=== PATIENT | male | born 1990 | race Two or more races ===

== ENCOUNTER 2020-03-10 05:44 | Day surgery (SDC) | payer OTHER ==
[2020-03-07 14:41] VITALS: BMI 34.8
--- OUTSIDE RECORDS SUMMARY | 2020-03-10 05:48 | XMS ---
:1990 [facility] Providers Name Role Phone [facility], [facility]9 Unavailable Unavailable Re-disclosure Warning The records that you are about to access may contain information from federally- assisted alcohol or drug abuse programs. If such information is present, then the following federally mandated warning applies: This information has been disclosed to you from records protected by federal confidentiality rules (42 CFR part 2). The federal rules prohibit you from making any further disclosure of this information unless further disclosure is expressly permitted by the written consent of the person to whom it pertains or as otherwise permitted by 42 CFR part 2. A general authorization for the release of medical or other information is NOT sufficient for this purpose. The Federal rules restrict any use of the information to criminally investigate or prosecute any alcohol or drug abuse patient.The records that you are about to access may contain highly sensitive health information, the redisclosure of which is protected by Article 27-F of the [facility] Public Health law. If you continue you may haveaccess to information: Regarding HIV / AIDS; Provided by facilities licensed or operated by the [facility] Office of Mental Health; or Provided by the [facility] Office for People With Developmental Disabilities. If such information is present, then the following [facility] mandated warning applies: This information has been disclosed to you from confidential records which are protected by state law. State law prohibits you from making any further disclosure of this information without the specific written consent of the person to whom it pertains, or as otherwise permitted by law. Any unauthorized further disclosure in violation of state law may result in a fine or fpc sentence or both. A general authorization for the release of medical or other information is NOT sufficient authorization for further disclosure. Encounters Encounter Providers Location Date Indications Data Source(s ) Outpatient Attender: [id number] 06/30/2019 [facility] ([facility] 12:08:36 PM Care Jewel castellanos) EST Patient admitted. Insurance Providers Payer name Policy type Policy ID Covered Covered alliance party's Policy P martina / Coverage alliance party ID relationship to [employer] ormation type roberts MVP MEDICAID [id number] SP [id number] [place] [id number] S [id number] Vision MKD [facility] [id number] S [id number] FFS Medicaid [facility] [id number] S [id number] Options MKD Medicaid [id number] S [id number] Regular Clinic Visit (DO NOT USE) [id number] S [id number] G [facility] PCP Not MVNHC/YHC/GH C Results ID Date Data Source [id number] 03/02/2020 12:00:00 AM EDT [facility] Name Value Range Interpretation Code Description Data Caitlin rce(s) Supporting Document(s ) 2018-nCoV [facility] RNA XXX CA+probe- Imp This lab was ordered by [facility] and reported by [employer] ID Date Data Source [id number] 10/08/2019 12:00:00 AM EDT [facility] Name Value Range Interpretation Code Description Data Caitlin rce(s) Supporting Document(s ) 2018-nCoV [facility] RNA XXX CA+probe- Imp This lab was ordered by [facility] and reported by [employer] Procedure
[2020-03-10] MEDS ORDERED: PROPOFOL 20 ML ONE (09:30)
[2020-03-10] MEDS ORDERED: KETAMINE HCL 500 MG/10 ML VIAL ONE (09:33)
[2020-03-10 10:49] VITALS: TEMP 97.9
[2020-03-10 11:07] VITALS: BP 135/82; PULSE 89
--- NOTE | 2020-03-10 13:21 | HP ---
CHIEF COMPLAINT: Schizoaffective disorder Primary Psychiatrist: Sathish Owens MD, [facility], [address], ; [phone] HISTORY OF PRESENT ILLNESS: 29 year-old male with a PMH significant for HTN, Type II NIDDM, ASHD, schizoaffective disorder, and polysubstance abuse. Has been a patient at [facility] for past 3 years. He presents today for ECT. Recent Events: * none reported PAST MEDICAL HISTORY: Hypertension Type II NIDDM ASHD Schizoaffective Disorder Polysubstance Abuse PAST SURGICAL HISTORY: Neck surgery Social History: resident of [facility] Smoking: current every day Alcohol & Drugs: h/o cannabis, alcohol, stimulants, opiates Family history: Mother 56 a&w; father 54 DM; 5 siblings a&w none with psych history Allergies No Known Drug Allergies Allergy (Verified 03/04/20 13:24) HOME MEDICATIONS: Home Medications Medication Instructions Recorded Aspirin [Lo-Dose Aspirin EC] 81 mg PO DAILY 03/04/20 Bisacodyl [Dulcolax -] 10 mg PO HS 03/04/20 Caffeine 400 mg PO DAILY PRN 03/04/20 Cholecalciferol (Vitamin D3) 2,000 unit PO DAILY 03/04/20 [Vitamin D3 -] Clozapine 500 mg PO HS 03/04/20 Docusate Sodium [Docusate 100 mg] 100 mg PO DAILY 03/04/20 Haloperidol [Haldol -] 10 mg PO HS 03/04/20 Liraglutide [Victoza -] 1.2 mg SQ DAILY@0700 03/04/20 Lisinopril [Zestril] 2.5 mg PO DAILY 03/04/20 Metformin HCl [Glucophage] 1,000 mg PO BID 03/04/20 Metoprolol Succinate 50 mg PO DAILY 03/04/20 Multivit-Min/Iron/Folic Acid/K 1 each PO DAILY 03/04/20 [Centravites Adults Tablet] Psyllium [Metamucil (Sugar-Free) -] 5.85 gm PO HS 03/04/20 Sertraline HCl [Zoloft] 100 mg PO DAILY 03/04/20 REVIEW OF SYSTEMS CONSTITUTIONAL: Absent: fever, chills, diaphoresis, generalized weakness, malaise, loss of appetite, weight change HEENT: Absent: rhinorrhea, nasal congestion, throat pain, throat swelling, difficulty swallowing, mouth swelling, ear pain, eye pain, visual changes CARDIOVASCULAR: Absent: chest pain, syncope, palpitations, irregular heart rate, lightheadedness, peripheral edema RESPIRATORY: Absent: cough, shortness of breath, dyspnea with exertion, orthopnea, wheezing, stridor, hemoptysis GASTROINTESTINAL: Absent: abdominal pain, abdominal distension, nausea, vomiting, diarrhea, constipation, melena, hematochezia GENITOURINARY: Absent: dysuria, frequency, urgency, hesitancy, hematuria, flank pain, genital pain MUSCULOSKELETAL: Absent: myalgia, arthralgia, joint swelling, back pain, neck pain SKIN: Absent: rash, itching, pallor HEMATOLOGIC/IMMUNOLOGIC: Absent: easy bleeding, easy bruising, lymphadenopathy, frequent infections ENDOCRINE: Absent: unexplained weight gain, unexplained weight loss, heat intolerance, cold intolerance NEUROLOGIC: Absent: headache, focal weakness or paresthesias, dizziness, unsteady gait, seizure, mental status changes, bladder or bowel incontinence PHYSICAL EXAMINATION Vital Signs - 24 hr 03/10/20 03/10/20 03/10/20 07:21 09:49 09:54 Temperature 98.0 F 98.5 F Pulse Rate 75 116 H 112 H Respiratory 18 19 13 Rate Blood Pressure 106/84 135/70 148/94 O2 Sat by Pulse 98 100 99 Oximetry (%) GENERAL: Awake, alert, and fully oriented, in no acute distress. HEAD: Normal with no signs of trauma. EYES: Pupils equal, round and reactive to light, sclera anicteric, conjunctiva clear. LUNGS: Breath sounds equal, clear to auscultation bilaterally. No wheezes, and no crackles. No accessory muscle use. HEART: Regular rate and rhythm, normal S1 and S2 ABDOMEN: Soft, nontender, not distended MUSCULOSKELETAL: Normal range of motion at all joints. No bony deformities or tenderness. No CVA tenderness. UPPER EXTREMITIES: 2+ pulses, warm, well-perfused. No cyanosis. No clubbing. No peripheral edema. LOWER EXTREMITIES: 2+ pulses, warm, well-perfused. No calf tenderness. No peripheral edema. NEUROLOGICAL: Cranial nerves II-XII intact. Normal speech. Laboratory Results - last 24 hr 03/10/20 07:54 POC Glucometer 80 ASSESSMENT/PLAN: 29 year-old male with a PMH significant for HTN, Type II NIDDM, ASHD, schizoaffective disorder, and polysubstance abuse. Has been a patient at [facility] for past 3 years. He presents today for ECT. Cardiac --Hypertension: BP is stable on current meds --Revised Cardiac Risk Index for Pre-Operative Risk: 0 points, 0.4% risk of major cardiac event Pulmonary --no pulmonary history Neurological --no neurological or neurosurgical history; no history of trauma Anesthesia --no reported problems with anesthesia ECT is a low risk procedure. The relative benefits of the planned procedure outweigh the relative risks for this patient at this time. Visit type - Emergency Visit Emergency Visit: No - New Patient This patient is new to me today: Yes Date on this admission: 03/10/20 - Critical Care Critical Care patient: No
== END 2020-03-10 11:00 ==
LOC: FECT 05:44
PROVIDERS: ATTEND Psychiatry & Neurology Psychiatry
PROC: GZB4ZZZ Other Electroconvulsive Therapy (ICD-10-PCS; principal; 2020-03-10 08:00)
DX: F25.9 Schizoaffective disorder, unspecified (principal)
CPT/HCPCS: 82962; 90870; 94760

== ENCOUNTER 2020-03-18 05:58 | Day surgery (SDC) | payer OTHER ==
--- OUTSIDE RECORDS SUMMARY | 2020-03-18 06:01 | XMS ---
:1990 [facility] Care Team Providers Name Role Phone [facility], [facility]9 Unavailable Unavailable Re-disclosure Warning The records that [...] is protected by Article 27-F of the [facility] Public Health law. If you continue you may haveaccess to information: Regarding HIV / AIDS; Provided by facilities licensed or operated by the [facility] Office of Mental Health; or Provided by the [facility] Office for People With Developmental Disabilities. If such information is present, then the following [facility] mandated warning applies: This information [...] Source(s ) Outpatient Attender: [id number] 06/30/2019 [facility] ([facility] EST Patient admitted. Insurance Providers Payer name Policy type Policy ID Covered Covered democrat's Policy P martina / Coverage democrat ID relationship to [employer] ormation type roberts MVP MEDICAID [id number] SP [id number] [place] [id number] S [id number] Vision MKD [facility] [id number] S [id number] FFS Medicaid [facility] [id number] S [id number] Options MKD Medicaid [id number] S [id number] Regular Clinic Visit (DO NOT USE) [id number] S [id number] G [facility] PCP Not MVNHC/YHC/GH C Results ID Date Data Source [id number] 03/14/2020 08:39:00 AM EST [facility] Name Value Range Interpretation Description Data Sup porting Code Source(s) Document(s ) SARS [facility] coronavirus 2 RNA This lab was ordered by MARY OTONIEL farley [facility] and reported by [facility]. ID Date Data Source [id number] 03/11/2020 09:14:00 AM EDT [facility] Name Value Range Interpretation Description Data Sup porting Code Source(s) Document(s ) SARS [facility] coronavirus 2 RNA This lab was ordered by MARY OTONIEL farley [facility] and reported by [facility]. ID Date Data Source [id number] 03/08/2020 09:00:00 AM EDT [facility] Name Value Range Interpretation Description Data Sup porting Code Source(s) Document(s ) SARS [facility] coronavirus 2 RNA This lab was ordered by MARY OTONIEL farley [facility] and reported by [facility]. ID Date Data Source [id number] 03/02/2020 12:00:00 AM EDT [facility] Name Value Range Interpretation Code Description Data Caitlin rce(s) Supporting Document(s ) 2019-nCoV [facility] RNA XXX CA+probe- Imp This lab was ordered by [facility] and reported by [employer]. ID Date Data Source [id number] 10/08/2019 12:00:00 AM EDT [facility] Name Value Range Interpretation Code Description Data Caitlin rce(s) Supporting Document(s ) 2019-nCoV [facility] RNA XXX CA+probe- Imp This lab was ordered by [facility] and reported by [employer] Procedure
[2020-03-18 06:38] VITALS: TEMP 98.3; BMI 34.9
[2020-03-18] MEDS ORDERED: SUCCINYLCHOLINE CHLORIDE 200 MG/10 ML SYRINGE ONE (07:18)
[2020-03-18] MEDS ORDERED: PROPOFOL 20 ML ONE (07:18)
[2020-03-18] MEDS ORDERED: KETAMINE HCL 200 MG/20 ML VIAL ONE (07:18)
[2020-03-18 08:39] VITALS: BP 131/84; PULSE 81
== END 2020-03-18 08:40 | disposition home or self-care (01) ==
LOC: FECT 05:58
PROVIDERS: ATTEND Psychiatry & Neurology Psychiatry
PROC: GZB4ZZZ Other Electroconvulsive Therapy (ICD-10-PCS; principal; 2020-03-18 07:00)
DX: F25.9 Schizoaffective disorder, unspecified (principal)
CPT/HCPCS: 90870; 94760; C9803; U0003

== ENCOUNTER 2020-03-24 05:42 | Day surgery (SDC) | payer OTHER ==
[2020-03-21 15:15] VITALS: BMI 34.8
[2020-03-24 06:38] VITALS: TEMP 98.1
[2020-03-24] MEDS ORDERED: KETAMINE HCL 500 MG/10 ML VIAL ONE (07:23)
[2020-03-24 08:50] VITALS: BP 141/87; PULSE 66
== END 2020-03-24 08:55 ==
LOC: FECT 05:42
PROVIDERS: ATTEND Psychiatry & Neurology Psychiatry
PROC: GZB4ZZZ Other Electroconvulsive Therapy (ICD-10-PCS; principal; 2020-03-24 07:30)
DX: F25.9 Schizoaffective disorder, unspecified (principal)
CPT/HCPCS: 82962; 90870; 94760

== ENCOUNTER 2020-03-25 05:45 | Day surgery (SDC) | payer OTHER ==
[2020-03-21 15:29] VITALS: BMI 34.8
[2020-03-25] MEDS ORDERED: KETAMINE HCL 500 MG/10 ML VIAL ONE (07:08)
[2020-03-25] MEDS ORDERED: DEXAMETHASONE SOD PHOSPHATE 4 MG/1 ML VIAL ONE ×2 (07:15→07:44)
[2020-03-25] MEDS ORDERED: ONDANSETRON 4 MG/2 ML VIAL ONE (07:15)
[2020-03-25] MEDS ORDERED: KETOROLAC TROMETHAMINE 30 MG/1 ML VIAL ONE (07:15)
[2020-03-25] MEDS ORDERED: SUCCINYLCHOLINE CHLORIDE 200 MG/10 ML SYRINGE ONE (07:19)
[2020-03-25] MEDS ORDERED: PROPOFOL 20 ML ONE ×2 (07:20)
[2020-03-25 08:24] VITALS: TEMP 98.1
[2020-03-25 08:56] VITALS: BP 133/88; PULSE 88
== END 2020-03-25 08:45 | disposition home or self-care (01) ==
LOC: FECT 05:45
PROVIDERS: ATTEND Psychiatry & Neurology Psychiatry
PROC: GZB4ZZZ Other Electroconvulsive Therapy (ICD-10-PCS; principal; 2020-03-25 07:00)
DX: F25.9 Schizoaffective disorder, unspecified (principal)
CPT/HCPCS: 82962; 90870; 94760; C9803; U0003

== ENCOUNTER → 2020-03-28 | Day surgery (SDC) | payer OTHER ==
[2020-03-21 15:32] VITALS: BMI 34.8
[~2020-03-28] MED LIST: KETAMINE HCL 500 MG/10 ML VIAL ONE
[2020-03-28 06:45] VITALS: TEMP 98
[2020-03-28 17:04] VITALS: BP 137/91; PULSE 95
== END | disposition home or self-care (01) ==
LOC: FECT 06:07
PROVIDERS: ATTEND Psychiatry & Neurology Psychiatry
PROC: GZB4ZZZ Other Electroconvulsive Therapy (ICD-10-PCS; principal; 2020-03-28 07:00)
DX: F25.9 Schizoaffective disorder, unspecified (principal)
CPT/HCPCS: 82962; 90870; 94760; C9803; U0003

== ENCOUNTER 2020-03-31 06:02 | Day surgery (SDC) | payer OTHER ==
[2020-03-24 16:14] VITALS: BMI 34.8
[2020-03-31 06:50] VITALS: TEMP 97.9
[2020-03-31] MEDS ORDERED: KETAMINE HCL 500 MG/10 ML VIAL ONE (07:27)
[2020-03-31 09:55] VITALS: BP 105/67; PULSE 67
== END 2020-03-31 09:55 ==
LOC: FECT 06:02
PROVIDERS: ATTEND Psychiatry & Neurology Psychiatry
PROC: GZB4ZZZ Other Electroconvulsive Therapy (ICD-10-PCS; principal; 2020-03-31 07:00)
DX: F25.9 Schizoaffective disorder, unspecified (principal)
CPT/HCPCS: 82962; 90870; 94760

== ENCOUNTER 2020-04-01 05:55 | Day surgery (SDC) | payer OTHER ==
[2020-03-24 16:18] VITALS: BMI 34.8
[2020-04-01] MEDS ORDERED: PROPOFOL 20 ML ONE ×2 (06:45)
[2020-04-01] MEDS ORDERED: SUCCINYLCHOLINE CHLORIDE 200 MG/10 ML SYRINGE ONE ×2 (06:46)
[2020-04-01 07:17] VITALS: TEMP 98
[2020-04-01] MEDS ORDERED: MIDAZOLAM HCL 2 MG/2 ML SINGLE DOSE VIAL ONE (08:09)
[2020-04-01 09:36] VITALS: BP 110/71; PULSE 79
== END 2020-04-01 09:40 | disposition home or self-care (01) ==
LOC: FECT 05:55
PROVIDERS: ATTEND Psychiatry & Neurology Psychiatry
PROC: GZB4ZZZ Other Electroconvulsive Therapy (ICD-10-PCS; principal; 2020-04-01 07:00)
DX: F25.9 Schizoaffective disorder, unspecified (principal)
CPT/HCPCS: 90870; 94760

== ENCOUNTER 2020-04-15 05:52 | Day surgery (SDC) | payer OTHER ==
[2020-04-13 13:43] VITALS: BMI 34.8
[2020-04-15 06:35] VITALS: TEMP 98.4
[2020-04-15 09:15] VITALS: BP 120/78; PULSE 71
== END 2020-04-15 08:35 | disposition home or self-care (01) ==
LOC: FECT 05:52
PROVIDERS: ATTEND Psychiatry & Neurology Psychiatry
PROC: GZB4ZZZ Other Electroconvulsive Therapy (ICD-10-PCS; principal; 2020-04-15 07:00)
DX: F32.9 Major depressive disorder, single episode, unspecified (principal)
CPT/HCPCS: 82962; 90870; 94760; C9803; U0003

== ENCOUNTER 2020-04-18 06:07 | Day surgery (SDC) | payer OTHER ==
[2020-04-15 16:36] VITALS: BMI 34.8
[2020-04-18 08:31] VITALS: TEMP 98.4
[2020-04-18 08:57] VITALS: BP 116/78; PULSE 102
== END 2020-04-18 09:00 ==
LOC: FECT 06:07
PROVIDERS: ATTEND Psychiatry & Neurology Psychiatry
PROC: GZB4ZZZ Other Electroconvulsive Therapy (ICD-10-PCS; principal; 2020-04-18 11:30)
DX: F32.9 Major depressive disorder, single episode, unspecified (principal)
CPT/HCPCS: 82962; 90870; 94760; C9803; U0003

== ENCOUNTER 2020-04-21 06:19 | Day surgery (SDC) | payer OTHER ==
[2020-04-20 14:11] VITALS: BMI 34.8
[2020-04-21] MEDS ORDERED: KETAMINE HCL 500 MG/10 ML VIAL ONE (07:09)
[2020-04-21] MEDS ORDERED: KETOROLAC TROMETHAMINE 30 MG/1 ML VIAL ONE (07:16)
[2020-04-21] MEDS ORDERED: ONDANSETRON 4 MG/2 ML VIAL ONE (07:16)
[2020-04-21] MEDS ORDERED: DEXAMETHASONE SOD PHOSPHATE 4 MG/1 ML VIAL ONE (07:16)
[2020-04-21] MEDS ORDERED: PROPOFOL 20 ML ONE (07:17)
[2020-04-21] MEDS ORDERED: SUCCINYLCHOLINE CHLORIDE 200 MG/10 ML SYRINGE ONE (07:17)
[2020-04-21 08:41] VITALS: TEMP 98.2
[2020-04-21 08:48] VITALS: BP 133/75; PULSE 88
== END 2020-04-21 08:50 ==
LOC: FECT 06:19
PROVIDERS: ATTEND Psychiatry & Neurology Psychiatry
PROC: GZB4ZZZ Other Electroconvulsive Therapy (ICD-10-PCS; principal; 2020-04-21 07:30)
DX: F25.9 Schizoaffective disorder, unspecified (principal)
CPT/HCPCS: 82962; 90870; 94760

== ENCOUNTER 2020-04-22 05:59 | Day surgery (SDC) | payer OTHER ==
[2020-04-21 17:19] VITALS: BMI 34.8
[2020-04-22 06:53] VITALS: TEMP 98.6
[2020-04-22] MEDS ORDERED: KETAMINE HCL 500 MG/10 ML VIAL ONE (07:08)
[2020-04-22] MEDS ORDERED: PROPOFOL 20 ML ONE ×2 (07:19)
[2020-04-22] MEDS ORDERED: SUCCINYLCHOLINE CHLORIDE 200 MG/10 ML SYRINGE ONE (07:19)
[2020-04-22 08:58] VITALS: BP 133/83; PULSE 88
== END 2020-04-22 09:00 ==
LOC: FECT 05:59
PROVIDERS: ATTEND Psychiatry & Neurology Psychiatry
PROC: GZB4ZZZ Other Electroconvulsive Therapy (ICD-10-PCS; principal; 2020-04-22 08:30)
DX: F25.9 Schizoaffective disorder, unspecified (principal)
CPT/HCPCS: 82962; 90870; 94760; C9803; U0003

== ENCOUNTER 2020-04-25 06:01 | Day surgery (SDC) | payer OTHER ==
[2020-04-21 17:23] VITALS: BMI 34.8
[2020-04-25] MEDS ORDERED: KETAMINE HCL 500 MG/10 ML VIAL ONE (07:06)
[2020-04-25 08:23] VITALS: TEMP 98.2
[2020-04-25 09:27] VITALS: BP 124/76; PULSE 86
== END 2020-04-25 08:40 ==
LOC: FECT 06:01
PROVIDERS: ATTEND Psychiatry & Neurology Psychiatry
PROC: GZB4ZZZ Other Electroconvulsive Therapy (ICD-10-PCS; principal; 2020-04-25 07:00)
DX: F25.9 Schizoaffective disorder, unspecified (principal)
CPT/HCPCS: 82962; 90870; 94760; C9803; U0003

== ENCOUNTER 2020-04-29 05:53 | Day surgery (SDC) | payer OTHER ==
[2020-04-28 11:05] VITALS: BMI 34.8
[2020-04-29] MEDS ORDERED: KETAMINE HCL 500 MG/10 ML VIAL ONE (07:06)
[2020-04-29 08:25] VITALS: BP 122/74; PULSE 83; TEMP 98.1
== END 2020-04-29 08:35 | disposition home or self-care (01) ==
LOC: FECT 05:53
PROVIDERS: ATTEND Psychiatry & Neurology Psychiatry
PROC: GZB4ZZZ Other Electroconvulsive Therapy (ICD-10-PCS; principal; 2020-04-29 07:30)
DX: F32.9 Major depressive disorder, single episode, unspecified (principal)
CPT/HCPCS: 90870; 94760; C9803; U0003

== ENCOUNTER 2020-05-02 05:57 | Day surgery (SDC) | payer OTHER ==
[2020-04-29 16:26] VITALS: BMI 34.8
[2020-05-02] MEDS ORDERED: KETAMINE HCL 500 MG/10 ML VIAL ONE (07:06)
[2020-05-02 08:58] VITALS: BP 134/81; PULSE 89; TEMP 98.5
== END 2020-05-02 08:45 ==
LOC: FECT 05:57
PROVIDERS: ATTEND Psychiatry & Neurology Psychiatry
PROC: GZB4ZZZ Other Electroconvulsive Therapy (ICD-10-PCS; principal; 2020-05-02 07:00)
DX: F25.9 Schizoaffective disorder, unspecified (principal)
CPT/HCPCS: 82962; 90870; 94760; C9803; U0003

== ENCOUNTER 2020-05-05 05:55 | Day surgery (SDC) | payer OTHER ==
[2020-04-29 15:05] VITALS: BMI 34.8
[2020-05-05] MEDS ORDERED: PROPOFOL 20 ML ONE ×2 (07:02)
[2020-05-05] MEDS ORDERED: KETAMINE HCL 200 MG/20 ML VIAL ONE (07:03)
[2020-05-05] MEDS ORDERED: SUCCINYLCHOLINE CHLORIDE 200 MG/10 ML SYRINGE ONE (07:03)
[2020-05-05] MEDS ORDERED: DEXAMETHASONE SOD PHOSPHATE 4 MG/1 ML VIAL ONE (07:09)
[2020-05-05] MEDS ORDERED: ONDANSETRON 4 MG/2 ML VIAL ONE (07:09)
[2020-05-05 08:24] VITALS: TEMP 98.3
[2020-05-05 08:48] VITALS: BP 105/75
[2020-05-05 08:53] VITALS: PULSE 77
[2020-05-05] MEDS ORDERED: ONDANSETRON 4 MG/2 ML VIAL IVPUSH PRN (10:41)
[2020-05-05] MEDS ORDERED: LACTATED RINGERS SOLUTION 1,000 ML IV SCH (10:45)
== END 2020-05-05 08:30 ==
LOC: FECT 05:55
PROVIDERS: ATTEND Psychiatry & Neurology Psychiatry
PROC: GZB4ZZZ Other Electroconvulsive Therapy (ICD-10-PCS; principal; 2020-05-05 07:00)
DX: F25.9 Schizoaffective disorder, unspecified (principal)
CPT/HCPCS: 82962; 90870; 94760; C9803; U0003

== ENCOUNTER 2020-05-09 05:54 | Day surgery (SDC) | payer OTHER ==
[2020-05-03 10:42] VITALS: BMI 34.8
[2020-05-09] MEDS ORDERED: ACETAMINOPHEN 325 MG TABLET (FP) PO PRN (06:52)
[2020-05-09] MEDS ORDERED: PROMETHAZINE HCL 25 MG/1 ML VIAL IVPUSH PRN (06:52)
[2020-05-09] MEDS ORDERED: LACTATED RINGERS SOLUTION 1,000 ML IV SCH (07:00)
[2020-05-09] MEDS ORDERED: KETAMINE HCL 500 MG/10 ML VIAL ONE (07:18)
[2020-05-09] MEDS ORDERED: PROPOFOL 20 ML ONE (07:23)
[2020-05-09] MEDS ORDERED: DEXAMETHASONE SOD PHOSPHATE 4 MG/1 ML VIAL ONE (07:24)
[2020-05-09] MEDS ORDERED: KETOROLAC TROMETHAMINE 30 MG/1 ML VIAL ONE (07:24)
[2020-05-09] MEDS ORDERED: ONDANSETRON 4 MG/2 ML VIAL ONE (07:24)
[2020-05-09] MEDS ORDERED: SUCCINYLCHOLINE CHLORIDE 200 MG/10 ML SYRINGE ONE (07:24)
[2020-05-09 08:36] VITALS: TEMP 98
[2020-05-09 09:23] VITALS: BP 108/72; PULSE 84
== END 2020-05-09 09:05 ==
LOC: FECT 05:54
PROVIDERS: ATTEND Psychiatry & Neurology Psychiatry
PROC: GZB4ZZZ Other Electroconvulsive Therapy (ICD-10-PCS; principal; 2020-05-09 07:30)
DX: F32.9 Major depressive disorder, single episode, unspecified (principal)
CPT/HCPCS: 90870; 94760; C9803; U0003

== ENCOUNTER 2020-05-12 05:54 | Day surgery (SDC) | payer OTHER ==
[2020-05-04 14:06] VITALS: BMI 34.8
[2020-05-12] MEDS ORDERED: KETAMINE HCL 500 MG/10 ML VIAL ONE (08:43)
[2020-05-12 10:00] VITALS: TEMP 98.1
[2020-05-12 10:27] VITALS: BP 120/84; PULSE 84
[2020-05-12] MEDS ORDERED: ONDANSETRON 4 MG/2 ML VIAL IVPUSH PRN (11:13)
[2020-05-12] MEDS ORDERED: LACTATED RINGERS SOLUTION 1,000 ML IV SCH (11:15)
== END 2020-05-12 10:10 | disposition home or self-care (01) ==
LOC: FECT 05:54
PROVIDERS: ATTEND Psychiatry & Neurology Psychiatry
PROC: GZB4ZZZ Other Electroconvulsive Therapy (ICD-10-PCS; principal; 2020-05-12 09:00)
DX: F33.2 Major depressive disorder, recurrent severe without psychotic features (principal)
CPT/HCPCS: 82962; 90870; 94760; C9803; U0003

== ENCOUNTER 2020-05-16 05:52 | Day surgery (SDC) | payer OTHER ==
[2020-05-16 06:43] VITALS: TEMP 98.1; BMI 35.3
[2020-05-16] MEDS ORDERED: KETAMINE HCL 200 MG/20 ML VIAL ONE (07:08)
[2020-05-16] MEDS ORDERED: KETOROLAC TROMETHAMINE 30 MG/1 ML VIAL ONE (07:22)
[2020-05-16] MEDS ORDERED: ONDANSETRON 4 MG/2 ML VIAL ONE (07:22)
[2020-05-16] MEDS ORDERED: DEXAMETHASONE SOD PHOSPHATE 4 MG/1 ML VIAL ONE (07:22)
[2020-05-16 08:53] VITALS: BP 115/66; PULSE 80
[2020-05-16] MEDS ORDERED: SUCCINYLCHOLINE CHLORIDE 200 MG/10 ML SYRINGE ONE (09:40)
== END 2020-05-16 08:50 ==
LOC: FECT 05:52 → FASU 05:52
PROVIDERS: ATTEND Psychiatry & Neurology Psychiatry
PROC: GZB4ZZZ Other Electroconvulsive Therapy (ICD-10-PCS; principal; 2020-05-16 10:30)
DX: F32.9 Major depressive disorder, single episode, unspecified (principal)
CPT/HCPCS: 82962; 90870; 94760; C9803; U0003

== ENCOUNTER 2020-05-19 05:50 | Day surgery (SDC) | payer OTHER ==
[2020-05-16 11:27] VITALS: BMI 35.2
[2020-05-19] MEDS ORDERED: KETAMINE HCL 500 MG/10 ML VIAL ONE (07:08)
[2020-05-19 08:50] VITALS: TEMP 97.1
[2020-05-19 08:51] VITALS: BP 118/78; PULSE 84
== END 2020-05-19 08:50 ==
LOC: FECT 05:50
PROVIDERS: ATTEND Psychiatry & Neurology Psychiatry
PROC: GZB4ZZZ Other Electroconvulsive Therapy (ICD-10-PCS; principal; 2020-05-19 07:30)
DX: F32.9 Major depressive disorder, single episode, unspecified (principal)
CPT/HCPCS: 82962; 90870; 94760; C9803; U0003

== ENCOUNTER 2020-05-26 05:52 | Day surgery (SDC) | payer OTHER ==
[2020-05-26 06:36] VITALS: BMI 35.2
[2020-05-26] MEDS ORDERED: PROPOFOL 20 ML ONE (07:18)
[2020-05-26] MEDS ORDERED: KETAMINE HCL 200 MG/20 ML VIAL ONE (07:19)
[2020-05-26 09:18] VITALS: PULSE 81
[2020-05-26 09:26] VITALS: BP 131/72; TEMP 97.7
== END 2020-05-26 09:28 | disposition home or self-care (01) ==
LOC: FECT 05:52
PROVIDERS: ATTEND Psychiatry & Neurology Psychiatry
PROC: GZB4ZZZ Other Electroconvulsive Therapy (ICD-10-PCS; principal; 2020-05-26 07:00)
DX: F32.9 Major depressive disorder, single episode, unspecified (principal)
CPT/HCPCS: 82962; 90870; 94760; C9803; U0003

== ENCOUNTER 2020-05-31 05:50 | Day surgery (SDC) | payer OTHER ==
[2020-05-26 14:48] VITALS: BMI 35.2
[2020-05-31] MEDS ORDERED: SUCCINYLCHOLINE CHLORIDE 200 MG/10 ML SYRINGE ONE (07:20)
[2020-05-31] MEDS ORDERED: KETAMINE HCL 200 MG/20 ML VIAL ONE (07:20)
[2020-05-31 08:22] VITALS: TEMP 97.5
[2020-05-31 08:36] VITALS: BP 113/81; PULSE 84
== END 2020-05-31 08:40 ==
LOC: FECT 05:50
PROVIDERS: ATTEND Psychiatry & Neurology Psychiatry
PROC: GZB4ZZZ Other Electroconvulsive Therapy (ICD-10-PCS; principal; 2020-05-31 10:00)
DX: F32.9 Major depressive disorder, single episode, unspecified (principal)
CPT/HCPCS: 82962; 90870; 94760; C9803; U0003

== ENCOUNTER 2020-06-02 05:48 | Day surgery (SDC) | payer OTHER ==
[2020-05-26 16:01] VITALS: BMI 35.2
[2020-06-02] MEDS ORDERED: KETAMINE HCL 500 MG/10 ML VIAL ONE (06:57)
[2020-06-02 08:23] VITALS: BP 114/72; PULSE 84; TEMP 98.2
== END 2020-06-02 08:34 ==
LOC: FECT 05:48
PROVIDERS: ATTEND Psychiatry & Neurology Psychiatry
PROC: GZB4ZZZ Other Electroconvulsive Therapy (ICD-10-PCS; principal; 2020-06-02 07:00)
DX: F32.9 Major depressive disorder, single episode, unspecified (principal)
CPT/HCPCS: 82962; 90870; 94760; C9803; U0003

== ENCOUNTER 2020-06-06 05:57 | Day surgery (SDC) | payer OTHER ==
[2020-06-06 06:31] VITALS: BMI 35.2
[2020-06-06] MEDS ORDERED: KETAMINE HCL 500 MG/10 ML VIAL ONE (07:03)
[2020-06-06 08:22] VITALS: TEMP 98.1
[2020-06-06 09:24] VITALS: BP 127/76; PULSE 82
== END 2020-06-06 09:00 ==
LOC: FECT 05:57
PROVIDERS: ATTEND Psychiatry & Neurology Psychiatry
PROC: GZB4ZZZ Other Electroconvulsive Therapy (ICD-10-PCS; principal; 2020-06-06 07:00)
DX: F32.9 Major depressive disorder, single episode, unspecified (principal)
CPT/HCPCS: 82962; 90870; 94760; C9803; U0003

== ENCOUNTER 2020-06-09 05:54 | Day surgery (SDC) | payer OTHER ==
[2020-06-09 06:38] VITALS: BMI 35.3
[2020-06-09] MEDS ORDERED: KETAMINE HCL 500 MG/10 ML VIAL ONE (07:06)
[2020-06-09 08:06] VITALS: TEMP 98.8
[2020-06-09 09:04] VITALS: BP 121/68; PULSE 95
[2020-06-09] MEDS ORDERED: LACTATED RINGERS SOLUTION 1,000 ML IV SCH (13:15)
== END 2020-06-09 09:07 | disposition home or self-care (01) ==
LOC: FECT 05:54
PROVIDERS: ATTEND Psychiatry & Neurology Psychiatry
PROC: GZB4ZZZ Other Electroconvulsive Therapy (ICD-10-PCS; principal; 2020-06-09 07:30)
DX: F32.9 Major depressive disorder, single episode, unspecified (principal)
CPT/HCPCS: 90870; 94760; C9803; U0003

== ENCOUNTER 2020-06-20 05:58 | Day surgery (SDC) | payer OTHER ==
[2020-06-20 07:54] VITALS: BMI 35.2
[2020-06-20] MEDS ORDERED: KETAMINE HCL 500 MG/10 ML VIAL ONE (08:39)
[2020-06-20 12:47] VITALS: TEMP 98.1
[2020-06-20 12:55] VITALS: BP 130/88; PULSE 90
== END 2020-06-20 10:15 | disposition home or self-care (01) ==
LOC: FECT 05:58
PROVIDERS: ATTEND Psychiatry & Neurology Psychiatry
PROC: GZB4ZZZ Other Electroconvulsive Therapy (ICD-10-PCS; principal; 2020-06-20 09:00)
DX: F32.9 Major depressive disorder, single episode, unspecified (principal)
CPT/HCPCS: 90870; 94760

== ENCOUNTER 2020-06-28 05:51 | Day surgery (SDC) | payer OTHER ==
[2020-06-28 06:43] VITALS: BMI 35.2
[2020-06-28] MEDS ORDERED: KETAMINE HCL 500 MG/10 ML VIAL ONE (07:26)
[2020-06-28 08:30] VITALS: TEMP 98.5
[2020-06-28 09:03] VITALS: BP 131/71; PULSE 93
== END 2020-06-28 08:55 ==
LOC: FECT 05:51
PROVIDERS: ATTEND Psychiatry & Neurology Psychiatry
PROC: GZB4ZZZ Other Electroconvulsive Therapy (ICD-10-PCS; principal; 2020-06-28 09:30)
DX: F32.9 Major depressive disorder, single episode, unspecified (principal)
CPT/HCPCS: 82962; 90870; 94760

== ENCOUNTER 2020-07-04 05:42 | Day surgery (SDC) | payer OTHER ==
[2020-07-04 06:45] VITALS: TEMP 98.1; BMI 35.2
[2020-07-04] MEDS ORDERED: KETAMINE HCL 500 MG/10 ML VIAL ONE (07:13)
[2020-07-04] MEDS ORDERED: PROPOFOL 20 ML ONE ×2 (07:34)
[2020-07-04] MEDS ORDERED: SUCCINYLCHOLINE CHLORIDE 200 MG/10 ML SYRINGE ONE (07:34)
[2020-07-04] MEDS ORDERED: EPHEDRINE SULFATE/0.9% NACL/PF 50 MG/10 ML SYRINGE NR ONE (07:35)
[2020-07-04] MEDS ORDERED: ONDANSETRON 4 MG/2 ML VIAL ONE (07:54)
[2020-07-04 07:57] VITALS: PULSE 89
[2020-07-04 08:43] VITALS: BP 121/71
== END 2020-07-04 08:45 ==
LOC: FECT 05:42
PROVIDERS: ATTEND Psychiatry & Neurology Psychiatry
PROC: GZB4ZZZ Other Electroconvulsive Therapy (ICD-10-PCS; principal; 2020-07-04 07:30)
DX: F25.9 Schizoaffective disorder, unspecified (principal)
CPT/HCPCS: 82962; 90870; 94760

== ENCOUNTER 2020-07-11 05:43 | Day surgery (SDC) | payer OTHER ==
[2020-07-11 06:40] VITALS: BMI 35.3
[2020-07-11] MEDS ORDERED: KETAMINE HCL 500 MG/10 ML VIAL ONE (07:10)
[2020-07-11 08:28] VITALS: PULSE 83
[2020-07-11 08:58] VITALS: BP 126/82; TEMP 98
[2020-07-11] MEDS ORDERED: ACETAMINOPHEN 325 MG TABLET (FP) PO PRN (11:46)
[2020-07-11] MEDS ORDERED: LACTATED RINGERS SOLUTION 1,000 ML IV SCH (12:00)
== END 2020-07-11 08:58 ==
LOC: FECT 05:43
PROVIDERS: ATTEND Psychiatry & Neurology Psychiatry
PROC: GZB4ZZZ Other Electroconvulsive Therapy (ICD-10-PCS; principal; 2020-07-11 07:30)
DX: F32.9 Major depressive disorder, single episode, unspecified (principal)
CPT/HCPCS: 82962; 90870; 94760

== ENCOUNTER 2020-07-18 09:52 | Day surgery (SDC) | payer OTHER ==
[2020-07-18 10:20] VITALS: BMI 35.3
[2020-07-18] MEDS ORDERED: KETAMINE HCL 500 MG/10 ML VIAL ONE (10:42)
[2020-07-18 12:50] VITALS: PULSE 92; TEMP 98.5
[2020-07-18 12:56] VITALS: BP 128/80
== END 2020-07-18 12:30 | disposition home or self-care (01) ==
LOC: FECT 09:52
PROVIDERS: ATTEND Psychiatry & Neurology Psychiatry
PROC: GZB4ZZZ Other Electroconvulsive Therapy (ICD-10-PCS; principal; 2020-07-18 10:30)
DX: F25.9 Schizoaffective disorder, unspecified (principal)
CPT/HCPCS: 82962; 90870; 94760

== ENCOUNTER 2023-10-24 11:59 | Emergency (ER) | payer OTHER ==
[2023-10-24 12:05] VITALS: BP 126/75; PULSE 111; RESP 18; TEMP 98.4; BMI 36.8
[2023-10-24] MEDS ORDERED: ACETAMINOPHEN 325 MG TABLET (FP) ONE (12:29)
[2023-10-24] MEDS: ACETAMINOPHEN 325 MG TABLET (FP) PO ONE (12:35)
== END 2023-10-24 14:03 | disposition home or self-care (01) ==
LOC: JERFT 11:59
DX: S93.401A Sprain of unspecified ligament of right ankle, initial encounter (principal); W01.0XXA Fall on same level from slipping, tripping and stumbling without subsequent striking against object, initial encounter
CPT/HCPCS: 73610-TC-RT-FY; 99283-25